=== PATIENT | female | born 1955 | race Caucasian/White ===

== ENCOUNTER 2017-01-06 10:43 | Emergency (ER) | payer BC ==
--- NOTE | 2017-01-06 11:17 | EDM.PDOC ---
ED HPI GENERAL MEDICAL PROBLEM - General Chief Complaint: Cardiovascular Problem Stated Complaint: TOOK A WEEKS WORTH OF BLOOD PRESSURE MEDS Time Seen by Provider: 01/06/17 11:00 Source of Information: Reports: Patient History Limitations: Reports: No Limitations - History of Present Illness INITIAL COMMENTS - FREE TEXT/NARRATIVE: This 61 yo female patient reports to the ED due to possibly taking 1 week of blood pressure medications this morning. The patient reports she was arranging her medications in her weekly pill box, had 7 of her blood pressure medications in her hand and thinks she took the medications. The patient reports she did not take the medications with intention to harm herself. The patient reports she normally takes about 7 pills daily and must have taken her 7 blood pressure medications instead of her regular pills. The patient reports no complaints at this time. Nursing staff called poison control. Poison control advised monitoring the patient for 6 hours for drops in blood pressure, support of the low blood pressure with IV fluids and repeat a CMP after 6 hours. Onset: Today, Sudden Duration: Minutes: Location: Reports: Other Severity: Mild Improves with: Reports: None Worsens with: Reports: None - Related Data Allergies Allergy/AdvReac Type Severity Reaction Status Date / Time clarithromycin [From Biaxin] Allergy Cannot Verified 01/06/17 10:47 Remember shellfish derived Allergy Cannot Verified 01/06/17 10:47 Remember Sulfa (Sulfonamide Allergy Cannot Verified 01/06/17 10:47 Antibiotics) Remember Home Meds: Home Meds Aspirin [Halfprin] 81 mg PO DAILY 01/06/17 [History] DULoxetine [Cymbalta] 30 mg PO BID 01/06/17 [History] FA/Lycopene/Lut/MV,Ca,Iron,Min [Centrum] 1 tab PO DAILY 01/06/17 [History] Fluticasone Propionate [Flovent HFA 220 mcg] 1 puff INH DAILY 01/06/17 [History] Moexipril HCl [Moexipril] 15 mg PO DAILY 01/06/17 [History] Salmeterol Xinafoate [Serevent Diskus] 1 puff INH DAILY 01/06/17 [History] Theophylline [Theophylline Anhydrous] 300 mg PO DAILY 01/06/17 [History] Theophylline [Theophylline Anhydrous] 400 mg PO BEDTIME 01/06/17 [History] traZODone HCl [Trazodone HCl] 100 mg PO BEDTIME 01/06/17 [History] Past Medical History HEENT History: Reports: Cataract Cardiovascular History: Reports: Hypertension Respiratory History: Reports: Asthma Musculoskeletal History: Reports: Back Pain, Chronic Psychiatric History: Reports: Depression Social & Family History - Family History Family Medical History: Unobtainable - Tobacco Use Smoking Status *Q: Never Smoker Second Hand Smoke Exposure: No - Caffeine Use Caffeine Use: Reports: None - Recreational Drug Use Recreational Drug Use: No ED ROS GENERAL - Review of Systems Review Of Systems: ROS reveals no pertinent complaints other than HPI. ED EXAM, GENERAL - Physical Exam Exam: See Below Exam Limited By: No Limitations General Appearance: Alert, WD/WN, No Apparent Distress Eye Exam: Bilateral Eye: EOMI, Normal Inspection, PERRL Ears: Normal External Exam, Normal Canal, Hearing Grossly Normal, Normal TMs Nose: Normal Inspection, Normal Mucosa, No Blood Throat/Mouth: Normal Inspection, Normal Lips, Normal Teeth, Normal Gums, Normal Oropharynx, Normal Voice, No Airway Compromise Head: Atraumatic, Normocephalic Neck: Normal Inspection, Supple, Non-Tender, Full Range of Motion Respiratory/Chest: No Respiratory Distress, Lungs Clear, Normal Breath Sounds, No Accessory Muscle Use, Chest Non-Tender Cardiovascular: Normal Peripheral Pulses, Regular Rate, Rhythm, No Edema, No Gallop, No JVD, No Murmur, No Rub GI/Abdominal: Normal Bowel Sounds, Soft, Non-Tender, No Organomegaly, No Distention, No Abnormal Bruit, No Mass (Female) Exam: Deferred Rectal (Female) Exam: Deferred Back Exam: Normal Inspection, Full Range of Motion, NT Extremities: Normal Inspection, Normal Range of Motion, Non-Tender, Normal Capillary Refill, No Pedal Edema Neurological: Alert, Oriented, CN II-XII Intact, Normal Cognition, Normal Gait, Normal Reflexes, No Motor/Sensory Deficits Psychiatric: Normal Affect, Normal Mood Skin Exam: Warm, Dry, Intact, Normal Color, No Rash Lymphatic: No Adenopathy Course - Vital Signs Last Recorded V/S: Last Vital Signs Temp 36.9 C 01/06/17 16:39 Pulse 63 01/06/17 16:39 Resp 16 01/06/17 16:39 BP 147/65 H 01/06/17 16:39 Pulse Ox 99 01/06/17 16:39 - Orders/Labs/Meds Orders: Active Orders 24 hr Category Date Time Status EKG Documentation Completion [RC] STAT Care 01/06/17 10:48 Active Regular Diet [DIET] Diet 01/06/17 Lunch Active Labs: Laboratory Tests 01/06/17 01/06/17 01/06/17 Range/Units 11:05 11:05 16:30 WBC 6.1 (5.0-10.0) 10^3/uL RBC 4.81 (4.2-5.4) 10^6/uL Hgb 14.9 (12.0-16.0) g/dL Hct 43.4 (37.0-47.0) % MCV 90.2 (80-100) fL MCH 31.0 (27.0-34.0) pg MCHC 34.3 (33.0-35.0) g/dL Plt Count 134 L (150-450) 10^3/uL Neut % (Auto) 67.4 (42.2-75.2) % Lymph % (Auto) 23.4 (20.5-50.1) % [place] % (Auto) 4.9 (2-8) % Eos % (Auto) 3.3 H (1.0-3.0) % Baso % (Auto) 1.0 (0.0-1.0) % Sodium 140 140 (135-145) mmol/L Potassium 3.6 4.1 (3.6-5.0) mmol/L Chloride 105 105 (101-111) mmol/L Carbon Dioxide 26.0 30.0 (21.0-31.0) mmol/L Anion Gap 12.6 9.1 BUN 19 H 18 (7-18) mg/dL Creatinine 1.0 1.0 (0.6-1.3) mg/dL Est Cr Clr Drug Dosing 47.63 47.63 mL/min Estimated GFR (MDRD) 56 56 BUN/Creatinine Ratio 19.00 18.00 Glucose 116 H 98 (74-105) mg/dL Calcium 9.6 9.1 (8.4-10.2) mg/dl Total Bilirubin 0.4 0.4 (0.2-1.0) mg/dL AST 32 25 (10-42) IU/L ALT 33 31 (10-60) IU/L Alkaline Phosphatase 71 69 (42-121) IU/L Total Protein 6.5 L 6.4 L (6.7-8.2) g/dl Albumin 4.2 4.0 (3.2-5.5) g/dl Globulin 2.3 2.4 Albumin/Globulin Ratio 1.83 1.67 Departure - Departure Time of Disposition: 17:00 Disposition: Home, Self-Care 01 Condition: good Clinical Impression: Medication overdose Qualifiers: Encounter type: initial encounter Injury intent: accidental or unintentional Qualified Code(s): T50.901A - Poisoning by unspecified drugs, medicaments and biological substances, accidental (unintentional), initial encounter Instructions: Accidental Overdose Forms: ED Department Discharge Care Plan Goals: The patient was advised of the examination and lab results during the visit. The patient was encouraged to continue to monitor for any additional symptoms. If the patient has any additional symptoms or concerns, the patient should follow-up with her primary care facility or return to the emergency department. - My Orders Last 24 Hours: My Active Orders 01/06/17 10:48 EKG Documentation Completion [RC] STAT 01/06/17 Lunch Regular Diet [DIET] - Assessment/Plan Last 24 Hours: My Active Orders 01/06/17 10:48 EKG Documentation Completion [RC] STAT 01/06/17 Lunch Regular Diet [DIET]
[2017-01-06 16:40] VITALS: BP 147/65
--- NOTE | 2017-01-09 14:31 | EKG ---
01/06/2017 - MARIE ZARAGOZA DEREJE - TIME: 1055 hours. EKG per my reading, shows sinus rhythm at a rate of [address] [facility] /[id number]
== END 2017-01-06 17:21 | disposition home or self-care (01) ==
LOC: DL.ED 10:43
DX: T50.901A Poisoning by unspecified drugs, medicaments and biological substances, accidental (unintentional), initial encounter (principal); I10 Essential (primary) hypertension; J45.909 Unspecified asthma, uncomplicated; F32.9 Major depressive disorder, single episode, unspecified; Z88.1 Allergy status to other antibiotic agents; Z91.013 Allergy to seafood; Z88.2 Allergy status to sulfonamides; Z79.82 Long term (current) use of aspirin; Z79.899 Other long term (current) drug therapy
CPT/HCPCS: 36415; 80053; 85025; 93005; 99284

== ENCOUNTER 2022-04-22 17:11 | Emergency (ER) | payer MEDICARE, BC ==
[2022-04-22] MEDS ORDERED: Bacitracin Oint 1 GM U/D Packet TOP ONE (19:19)
[2022-04-22 19:28] LABS: PTT,PARTIAL THROMBOPLSTIN TIME 31.4 SEC (22.0-34.0)
[2022-04-22 19:29] LABS: ANION GAP 16.5 mEq/L (7-13); CHLORIDE,CL 101 mmol/L (98-107); SODIUM,NA 135 mmol/L (136-145)
[2022-04-22 19:36] LABS: ESTIMATED GFR 50 mL/min (>=60)
[2022-04-22 19:47] VITALS: BP 112/87; PULSE 107
[2022-04-22] MEDS ORDERED: Acetaminophen 500 MG Tab PO ONE (20:09)
== END 2022-04-22 20:51 | disposition home or self-care (01) ==
LOC: DL.ED 17:11
DX: S01.01XA Laceration without foreign body of scalp, initial encounter (principal); D69.6 Thrombocytopenia, unspecified; I10 Essential (primary) hypertension; E66.9 Obesity, unspecified; Z68.30 Body mass index [BMI] 30.0-30.9, adult; C34.90 Malignant neoplasm of unspecified part of unspecified bronchus or lung; C7A.1 Malignant poorly differentiated neuroendocrine tumors; Z88.1 Allergy status to other antibiotic agents; Z88.2 Allergy status to sulfonamides; Z91.013 Allergy to seafood; Z91.048 Other nonmedicinal substance allergy status; Z79.899 Other long term (current) drug therapy; Z79.82 Long term (current) use of aspirin; Z90.710 Acquired absence of both cervix and uterus; W18.39XA Other fall on same level, initial encounter
CPT/HCPCS: 12001; 36415; 70450; 72125; 72192; 80053; 82947; 85025; 85610; 85730; 99284; 99285; A9270-GY; J1642

== ENCOUNTER 2022-04-23 00:30 | Emergency (ER) | payer MEDICARE, BC ==
[2022-04-23] MEDS ORDERED: Ondansetron 4 MG/2 ML SDV ONE ×2 (00:45→01:59)
[2022-04-23] MEDS ORDERED: levETIRAcetam in NaCl (iso-os) 100 ML ONE (01:19)
[2022-04-23] MEDS ORDERED: Dexamethasone 2 MG Tab ONE (01:19)
[2022-04-23] MEDS ORDERED: Ondansetron 4 MG/2 ML SDV IVPUSH ONE (01:58)
[2022-04-23 03:05] LABS: ANION GAP 16.7 mEq/L (7-13); CHLORIDE,CL 101 mmol/L (98-107); ESTIMATED GFR 45 mL/min (>=60); SODIUM,NA 135 mmol/L (136-145)
[2022-04-23] MEDS ORDERED: Sodium Chloride 0.9% 500 ML IV SCH (04:45)
[2022-04-23] MEDS ORDERED: Piperacillin/Tazobactam 3.375 GM in Sodium Chloride 0.9% 100 ML IV ONE (07:45)
[2022-04-23] MEDS ORDERED: Gadobenate Dimeglumine 529 MG/ML 20 ML SDV IVPUSH ONE ×2 (07:59→09:27)
[2022-04-23] MEDS ORDERED: Metoprolol Tartrate 5 MG/5 ML SDV IVPUSH ONE (08:46)
[2022-04-23 08:54] VITALS: BP 148/118; PULSE 129
== END 2022-04-23 16:10 | disposition expired ==
LOC: DL.ED 00:30
DX: A41.9 Sepsis, unspecified organism (principal); C34.90 Malignant neoplasm of unspecified part of unspecified bronchus or lung; C75.9 Malignant neoplasm of endocrine gland, unspecified; I10 Essential (primary) hypertension; Z88.2 Allergy status to sulfonamides; Z91.013 Allergy to seafood; Z88.1 Allergy status to other antibiotic agents; Z91.09 Other allergy status, other than to drugs and biological substances; Z88.8 Allergy status to other drugs, medicaments and biological substances; Z79.82 Long term (current) use of aspirin
CPT/HCPCS: 36415; 51701; 70450; 70552; 71045; 80048; 81003; 82272; 83880; 84484; 85018; 85025; 86850; 86900; 86901; 87040; 93005; 96361; 96365; 96375; 96376; 99285; 99285-25; A9577; C1758; J1953; J2405; J2543; J3490; J7040; J8540